=== PATIENT | female | born 1970 | race American Indian/Alaskan Native ===

== ENCOUNTER 2017-03-02 06:35 | Day surgery (SDC) | payer OTHER ==
[2017-02-24 10:32] VITALS: BMI 38.9
[2017-03-02] MEDS ORDERED: Lactated Ringer's 1,000 ML IV ONE (09:02)
[2017-03-02] MEDS ORDERED: cefOXitin IV 2 gm in Dextrose 2 GM/50 ML BAG IVPB ONE ×2 (09:17→09:19)
[2017-03-02] MEDS: HYDROmorphone 0.5 mg/0.5 ml ISec IVP PRN ×2 (09:52→10:02)
[2017-03-02 11:36] VITALS: BP 129/70; PULSE 86; RESP 20; TEMP 97.4; O2SAT 97
--- NOTE | 2017-03-02 13:26 | OP ---
PROCEDURE DATE: 03/02/2017 PREOPERATIVE DIAGNOSIS: Fibroid uterus, menorrhagia. POSTOPERATIVE DIAGNOSIS: Fibroid uterus, menorrhagia. PROCEDURE: Hysteroscopy, hysteroscopic myomectomy. FINDINGS: A 1 cm right uterine wall submucosal myoma. SURGEON: Dr. Wall. ANESTHESIA: General. ESTIMATED BLOOD LOSS: Less than 1 mL. COMPLICATIONS: Nil. DESCRIPTION OF PROCEDURE: After the risks, benefits, and alternatives of the planned procedures including, but not limited to infection, hemorrhage, deep vein thrombosis, atelectasis, pneumonia, pulmonary embolism, damage to the bladder, damage to the ureter, renal insufficiency, renal failure, wound infection, wound dehiscence, incisional hernia, keloid formation, damage to large and small intestines, damage to inferior vena cava and aorta requiring extensive repair, anesthesia complications, electrolyte imbalance, possibility of , fluid overload, cerebral edema, air embolism, and other complications that were discussed, but are not listed above have been explained to the patient and all her questions answered and informed consent was obtained. The patient was taken to the operating room in a stable condition. Under a suitable level of general anesthesia, she was prepped and draped in a sterile fashion after having been placed in a dorsal lithotomy position. The bladder was emptied by a straight catheterization. Examination under anesthesia revealed a normal-sized uterus anteverted with no adnexal masses. A weighted speculum was inserted into the vagina. The anterior lip of the cervix was crossed using a single-tooth tenaculum, an endocervical curettage was performed and scant tissue was obtained. The uterus was sounded to 7 cm. Cervix was dilated to #16 Hanks dilator. A hysteroscope was inserted into the uterus and using a MyoSure device, a 1-cm right uterine wall poly/myoma was resected up to the level of the endometrium with good hemostasis. Hysteroscope was then removed. A gentle endometrial curettage was performed, scant tissue was obtained. The patient was then transferred to the recovery room in a stable condition. Pad and instrument counts were correct x2. There were no complications. Orly Wall MD
== END 2017-03-02 11:37 | disposition home or self-care (01) ==
LOC: C.SDS 06:35
PROVIDERS: ATTEND Obstetrics & Gynecology Reproductive Endocrinology
DX: D25.9 Leiomyoma of uterus, unspecified (principal)
CPT/HCPCS: 36415; 58561; 82948; 86850; 86900; 88305; J0694; J1170; J3010; J7120

== ENCOUNTER 2018-04-18 08:24 | Day surgery (SDC) | payer MEDICAID ==
[2018-04-07 10:11] VITALS: BMI 41.1
[2018-04-18] MEDS ORDERED: Lidocaine 2% MPF (5 ml) Inj ONE (09:29)
[2018-04-18] MEDS ORDERED: EPINEPHrine 1 mg/ml (1:1000) Inj ONE (09:29)
[2018-04-18] MEDS ORDERED: Midazolam 2 MG/2 ML VIAL ONE ×2 (10:38→10:59)
[2018-04-18] MEDS ORDERED: Propofol 10 mg/ml Inj (20 ML) ONE ×4 (10:38→11:13)
[2018-04-18] MEDS ORDERED: Neostigmine Methylsulfate 3mg/3ml Syringe IV ONE (11:16)
--- NOTE | 2018-04-18 11:29 | CP.PCM.HP ---
Past Patient History - Infectious Disease Hx of Infectious Diseases: None - Past Medical History & Family History Past Medical History?: Yes - Past Social History Smoking Status: Former Smoker - CARDIAC Hx Cardiac Disorders: Yes (palpitations 2009) Hx Hypertension: Yes - PULMONARY Hx Respiratory Disorders: Yes Hx Asthma: Yes Hx Bronchitis: Yes Hx Pneumonia: Yes (LATE 2017) - NEUROLOGICAL Hx Neurological Disorder: No - HEENT Hx HEENT Problems: No - RENAL Hx Chronic Kidney Disease: No - ENDOCRINE/METABOLIC Hx Endocrine Disorders: Yes Hx Diabetes Mellitus Type 2: Yes - HEMATOLOGICAL/ONCOLOGICAL Hx Blood Disorders: Yes Hx Anemia: Yes Hx Blood Transfusions: No - INTEGUMENTARY Hx Dermatological Problems: No - MUSCULOSKELETAL/RHEUMATOLOGICAL Hx Musculoskeletal Disorders: No - GASTROINTESTINAL Hx Gastrointestinal Disorders: No - GENITOURINARY/GYNECOLOGICAL Hx Genitourinary Disorders: Yes (FIBROID UTERUS) - PSYCHIATRIC Hx Psychophysiologic Disorder: No Hx Substance Use: No - SURGICAL HISTORY Hx Surgeries: Yes Hx Cardiac Catheterization: Yes Hx Section: Yes (X2) Hx Hysterectomy: Yes Other/Comment: ovarian cyst and myomectomy - ANESTHESIA Hx Anesthesia: Yes Hx Anesthesia Reactions: No Hx Malignant Hyperthermia: No Has any member of the family had a problem w/ anesthesia?: No Meds Allergies/Adverse Reactions: Allergies Allergy/AdvReac Type Severity Reaction Status Date / Time No Known Allergies Allergy Verified 06/28/16 11:06 Results - Vital Signs Recent Vital Signs: Last Vital Signs Temp 97.8 F 04/18/18 08:31 Pulse 90 04/18/18 08:31 Resp 18 04/18/18 08:31 BP 117/84 04/18/18 08:31 Pulse Ox 98 04/18/18 08:31 - Labs Labs: Laboratory Results - last 24 hr 04/18/18 08:57 POC Glucose (mg/dL) 157 H
[2018-04-18] MEDS ORDERED: Flumazenil 0.1 mg/ml Inj (5ml) IVP ONE (11:31)
[2018-04-18] MEDS ORDERED: Albuterol-Ipratrop 3 mg / 0.5 (3 ml) UD INH STA (11:51)
[2018-04-18] MEDS ORDERED: Albuterol-Ipratrop 3 mg / 0.5 (3 ml) UD ONE (11:52)
--- NOTE | 2018-04-18 12:58 | RAD ---
HISTORY: Post Procedure. COMPARISON: Chest x-ray 04/07/2018 TECHNIQUE: Chest one view . FINDINGS: LUNGS: Mild pulmonary vascular congestion with prominence of the bilateral elizabeth. PLEURA: No pleural effusion is identified. CARDIOVASCULAR: Heart size is top-normal. No atherosclerotic calcification present. OSSEOUS STRUCTURES: Degenerative changes noted of the spine. VISUALIZED UPPER ABDOMEN: Unremarkable. OTHER FINDINGS: None. IMPRESSION: Mild pulmonary vascular congestion with prominence of bilateral elizabeth. Top-normal heart size.
--- NOTE | 2018-04-18 13:13 | CP.PCM.PN ---
Subjective - Date & Time of Evaluation Date of Evaluation: 04/18/18 Time of Evaluation: 13:10 - Subjective Subjective: Patient seen and examined at bedside. Reports lethargy, intermittent SOB, and sore throat. Denies any fever, chills, nausea or vomiting. Objective - Vital Signs/Intake and Output Vital Signs (last 24 hours): Temp Pulse Resp BP Pulse Ox 97.4 F L 89 11 L 112/70 100 04/18/18 11:49 04/18/18 12:30 04/18/18 12:30 04/18/18 12:30 04/18/18 12:30 Intake and Output: 04/18/18 04/18/18 06:59 18:59 Intake Total 0 Balance 0 - Medications Medications: Current Medications Ondansetron HCl (Zofran Inj) 4 mg IVP ONCE PRN PRN Reason: Nausea/Vomiting Stop: 04/18/18 13:51 - Constitutional Appears: Non-toxic, No Acute Distress - Head Exam Head Exam: ATRAUMATIC, NORMAL INSPECTION, NORMOCEPHALIC - Eye Exam Eye Exam: Normal appearance - ENT Exam ENT Exam: Mucous Membranes Moist - Respiratory Exam Respiratory Exam: Clear to Ausculation Bilateral - Cardiovascular Exam Cardiovascular Exam: +S1, +S2 - GI/Abdominal Exam GI & Abdominal Exam: Soft. absent: Tenderness - Extremities Exam Extremities Exam: Normal Capillary Refill. absent: Pedal Edema - Neurological Exam Neurological Exam: Alert, Awake, Oriented x3 - Psychiatric Exam Psychiatric exam: Normal Affect, Normal Mood - Skin Skin Exam: Normal Color, Warm Assessment and Plan - Assessment and Plan (Free Text) Assessment: S/P Bronchoscopy Plan: CXR Ordered NPO for 2 hours post procedure Cepacol for Sore throat. DC when DC criteria met. Patient discussed with Dr. Augie Dobbs, PGY-2
[2018-04-18] MEDS ORDERED: Benzocaine/Menthol (Cepacol) Lozenge PO ONE (13:45)
[2018-04-18 14:45] VITALS: RESP 18
[2018-04-18 15:13] VITALS: BP 117/64; PULSE 91; TEMP 97.9; O2SAT 96
--- NOTE | 2018-04-19 10:01 | OP ---
PROCEDURE DATE: 04/18/2018 PROCEDURE: Endobronchial US Biopsy ANESTHESIA: General. Initially EBUS scope was introduced. Trying to find the right particularization identified. However, faulty equipment preventing from proceeding with the biopsy. After several attempts, unable to proceed because of malfunction of EBUS system, the scope was withdrawn and regular transbronchial biopsy scope was introduced under fluoroscopic guidance. Multiple biopsies were done, right lung procedure, well tolerated. Santos Ghosh MD
== END 2018-04-18 15:20 | disposition home or self-care (01) ==
LOC: C.SDS 08:24
PROVIDERS: ATTEND Internal Medicine Pulmonary Disease
DX: D86.0 Sarcoidosis of lung (principal)